=== PATIENT | female | born 1955 | race Caucasian/White ===

== ENCOUNTER 2018-03-30 09:02 | Outpatient (CLI) | payer MEDICARE, MEDICAID ==
--- NOTE | 2018-03-30 10:45 | MRI ---
MRI BRAIN NONCONTRAST: CLINICAL HISTORY: Cerebral infarction. COMPARISON: No prior imaging for comparison. FINDINGS: There is extensive patient motion, which degrades image quality and, thus, limits the evaluation. Th ere is no evidence of an acute territorial infarction, mass effect, or midline shift. There is mild global atrophy. Right PLAN COORDINATOR distribution encephalomalacia is present, with superimposed mild chronic i schemic disease involving the cerebral white matter, as well as within the flaco. There is no intracr anial hemorrhagic susceptibility. The central skull base flow voids are grossly patent. IMPRESSION: 1. No acute territorial infarction or mass effect. 2. Evidence of chronic infarction and chronic microvascular ischemic disease. 3. Parenchymal atrophy. POS: YANN
== END 2018-03-30 09:03 | disposition home or self-care (01) ==
LOC: SCSMRI 09:02
PROVIDERS: ATTEND Psychiatry & Neurology Neurology
DX: I63.9 Cerebral infarction, unspecified (principal); I67.82 Cerebral ischemia; G31.9 Degenerative disease of nervous system, unspecified
CPT/HCPCS: 70551